=== PATIENT | male | born 1970 | race Caucasian/White ===

== ENCOUNTER 2024-12-01 16:28 | Emergency (ER) | payer SELFPAY ==
[2024-12-01 16:39] VITALS: BP 126/84
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
[2024-12-01] MEDS: MOTRIN 600 MG PO (19:15)
[2024-12-01 19:22] VITALS: BMI 30.8
== END 2024-12-01 19:28 | disposition home or self-care (01) ==
LOC: EMR 16:28
PROVIDERS: EMERGENCY PHYSICIAN Student in an Organized Health Care Education/Training Program
DX: S60.413A Abrasion of left middle finger, initial encounter (principal); V58.5XXA Driver of pick-up truck or van injured in noncollision transport accident in traffic accident, initial encounter; Y92.410 Unspecified street and highway as the place of occurrence of the external cause
CPT/HCPCS: 99283